=== PATIENT | male | born 1950 | race Caucasian/White ===

== ENCOUNTER 2017-04-06 18:50 | Inpatient (IN) | payer OTHER ==
[~2017-04-06] VITALS: Ht 177.8 cm; Wt 85.5 kg
[2017-04-06] MEDS ORDERED: NALOXONE HCL 2 MG/2 ML VIAL ONE (18:58)
[2017-04-06] MEDS ORDERED: NALOXONE HCL 0.4 MG/ML AMP IV PUSH ONE (19:00)
--- NOTE | 2017-04-06 19:00 | PD ---
HPI Chief Complaint: OD/ Ingestion Time Seen by Provider: 18:59 Travel History International Travel<30 days: No (unknown) Contact w/Intl Traveler<30days: No (unknown) Traveled to known affect area: No (unknown) History of Present Illness HPI OD FOUND DOWN ON FLOOR, RR 4, HR 40'S, BVM AND NARCAN .8 GIVEN AND RR INCREASED TO 16, HR INCREASED TO 120'S PFSH Past Medical History ?: Not Social History Tobacco Use: Yes Allergies-Medications (Allergen,Severity, Reaction): Coded Allergies: No Known Allergies (Unverified , 04/06/17) Reported Meds & Prescriptions Reported Meds & Active Scripts Active Active Prescriptions or Reported Medications Unobtainable Review of Systems ROS Limitations: Intoxication Except as stated in HPI: all other systems reviewed are Neg Physical Exam Narrative GENERAL: SKIN: Warm and dry. HEAD: Atraumatic. Normocephalic. EYES: Pupils equal and round. No scleral icterus. No injection or drainage. ENT: No nasal bleeding or discharge. Mucous membranes pink and moist. NECK: Trachea midline. No JVD. CARDIOVASCULAR: Regular rate and rhythm. SLIGHT TACHYCARDIA RESPIRATORY: No accessory muscle use. Clear to auscultation. Breath sounds equal bilaterally. GASTROINTESTINAL: Abdomen soft, non-tender, nondistended. MUSCULOSKELETAL: Extremities without clubbing, cyanosis, or edema. No obvious deformities. NEUROLOGICAL: WITHDRAWING TO PAIN ALL 4 EXTREMITIES, GCS 12/15, BECAME AGITATED IN CT SUITE SHORTLY AFTER TAKING TO CT...No obvious cranial nerve deficits. Motor grossly within normal limits. Five out of 5 muscle strength in the arms and legs. Normal speech. PSYCHIATRIC: Appropriate mood and affect; insight and judgment normal. Data Data Last Documented VS Vital Signs Date Time Temp Pulse Resp B/P (MAP) Pulse Ox O2 Delivery O2 Flow Rate FiO2 04/06/17 20:10 98.7 04/06/17 19:46 104 20 94 2.00 04/06/17 19:05 Non-Rebreather Orders Orders Electrocardiogram (04/06/17 18:53) Complete Blood Count With Diff (04/06/17 18:53) Comprehensive Metabolic Panel (04/06/17 18:53) Creatine Kinase (Cpk) (04/06/17 18:53) Ckmb (Isoenzyme) Profile (04/06/17 18:53) Troponin I (04/06/17 18:53) B-Type Natriuretic Peptide (04/06/17 18:53) Prothrombin Time / Inr (Pt) (04/06/17 18:53) Act Partial Throm Time (Ptt) (04/06/17 18:53) Arterial Blood Gas (Abg) (04/06/17 18:53) Urinalysis - C+S If Indicated (04/06/17 18:53) Thyroid Stimulating Hormone (04/06/17 18:53) Chest, Single Ap (04/06/17 18:53) Ct Brain W/O Iv Contrast(Rout) (04/06/17 18:53) Naloxone Inj (Narcan Inj) (04/06/17 18:58) Iv Access Insert/Monitor (04/06/17 18:53) Ecg Monitoring (04/06/17 18:53) Oxygen Administration (04/06/17 18:53) Oximetry (04/06/17 18:53) Urinary Catheter Insert/Apply (04/06/17 18:53) Drug Screen, Random Urine (04/06/17 18:53) Alcohol (Ethanol) (04/06/17 18:53) Salicylates (Aspirin) (04/06/17 18:53) Tylenol (Acetaminophen) (04/06/17 18:53) Naloxone Inj (Narcan Inj) (04/06/17 19:00) Fentanyl Inj (Fentanyl Inj) (04/06/17 19:15) Fentanyl Inj (Fentanyl Inj) (04/06/17 19:16) Lorazepam Inj (Ativan Inj) (04/06/17 19:30) Lorazepam Inj (Ativan Inj) (04/06/17 19:26) CKMB (04/06/17 20:05) CKMB% (04/06/17 20:05) Sodium Chlorid 0.9% 500 Ml Inj (Ns 500 M (04/06/17 21:00) Aspirin Chew (Aspirin Chew) (04/06/17 21:15) Nitroglycerin 2% Oint (Nitroglycerin 2% (04/06/17 21:15) Labs Laboratory Tests Test 04/06/17 18:50 04/06/17 20:05 04/06/17 20:24 Blood Gas Puncture Site LT RADIAL Blood Gas Patient Temperature 98.6 Blood Gas HCO3 12 mmol/L Blood Gas Base Excess -14.5 mmol/L Blood Gas Oxygen Saturation 96 % Arterial Blood pH 7.24 Arterial Blood Partial Pressure CO2 28 mmHg Arterial Blood Partial Pressure O2 205 mmHG Arterial Blood Oxygen Content 21.5 Vol % Arterial Blood Carboxyhemoglobin 2.5 % Arterial Blood Methemoglobin 0.5 % Blood Gas Hemoglobin 15.6 G/DL Oxygen Delivery Device Non-Rebreathing Mask Blood Gas Liter Flow 15 L/M White Blood Count 10.6 TH/MM3 Red Blood Count 4.69 MIL/MM3 Hemoglobin 15.4 GM/DL Hematocrit 45.6 % Mean Corpuscular Volume 97.3 FL Mean Corpuscular Hemoglobin 32.8 PG Mean Corpuscular Hemoglobin Concent 33.8 % Red Cell Distribution Width 13.5 % Platelet Count 273 TH/MM3 Mean Platelet Volume 7.4 FL Neutrophils (%) (Auto) 89.3 % Lymphocytes (%) (Auto) 6.5 % Monocytes (%) (Auto) 3.5 % Eosinophils (%) (Auto) 0.4 % Basophils (%) (Auto) 0.3 % Neutrophils # (Auto) 9.5 TH/MM3 Lymphocytes # (Auto) 0.7 TH/MM3 Monocytes # (Auto) 0.4 TH/MM3 Eosinophils # (Auto) 0.0 TH/MM3 Basophils # (Auto) 0.0 TH/MM3 CBC Comment DIFF FINAL Differential Comment Prothrombin Time 12.7 SEC Prothromb Time International Ratio 1.1 RATIO Activated Partial Thromboplast Time 23.4 SEC Blood Urea Nitrogen 6 MG/DL Creatinine 1.18 MG/DL Random Glucose 189 MG/DL Total Protein 8.4 GM/DL Albumin 3.5 GM/DL Calcium Level 8.9 MG/DL Alkaline Phosphatase 57 U/L Aspartate Amino Transf (AST/SGOT) 97 U/L Alanine Aminotransferase (ALT/SGPT) 105 U/L Total Bilirubin 1.2 MG/DL Sodium Level 129 MEQ/L Potassium Level 3.8 MEQ/L Chloride Level 93 MEQ/L Carbon Dioxide Level 20.2 MEQ/L Anion Gap 16 MEQ/L Estimat Glomerular Filtration Rate 53 ML/MIN Total Creatine Kinase 403 U/L Creatine Kinase MB 2.1 NG/ML Creatine Kinase MB % 0.5 % Troponin I 0.07 NG/ML B-Type Natriuretic Peptide 94 PG/ML Thyroid Stimulating Hormone 3rd Gen 1.420 uIU/ML Salicylates Level LESS THAN 1.7 MG/DL Acetaminophen Level LESS THAN 2.0 MCG/ML Ethyl Alcohol Level LESS THAN 3 MG/DL Urine Color YELLOW Urine Turbidity CLEAR Urine pH 5.5 Urine Specific [place] 1.011 Urine Protein 30 mg/dL Urine Glucose (UA) TRACE mg/dL Urine Ketones 10 mg/dL Urine Occult Blood SMALL Urine Nitrite NEG Urine Bilirubin NEG Urine Urobilinogen LESS THAN 2.0 MG/DL Urine Leukocyte Esterase NEG Urine RBC 1 /hpf Urine WBC 2 /hpf Urine Amorphous Sediment RARE Urine Bacteria OCC /hpf Urine Mucus FEW /lpf Urine Sperm RARE Microscopic Urinalysis Comment CULT NOT INDICATED Urine Opiates Screen NEG Urine Barbiturates Screen NEG Urine Amphetamines Screen NEG Urine Benzodiazepines Screen NEG Urine Cocaine Screen POS Urine Cannabinoids Screen NEG MDM Medical Decision Making Medical Screen Exam Complete: Yes Emergency Medical Condition: Yes Medical Record Reviewed: Yes Differential Diagnosis ICH V OPIATE OVERDOSE V ELECTROLYTE ABNL Narrative Course PATINET NOTED TO INITIALLY BE WITHDRAWING TO PAIN ONLY AND WITHDRAWING THROUGH ALL 4 EXTREMITIES, PATIENT TAKEN TO CT HEAD DUE TO SOME OCCASIONAL EXTENSION OF BILATERAL UPPER EXTREMITIES POSSIBLE POSTURING? WHILE IN CT SCAN PATIENT BECAME VERY COMBATIVE AFTER RECEIVING ADDITIONAL NARCAN, SO PATIENT WAS GIVEN SOME SEDATION TO ALLOW FOR CT HEAD....WHICH DID NOT SHOW E/O ICH. PATIENT SIGNED OUT TO DR AQUINO PENDING FORMAL CAT SCAN READ AND LABS, DISPO Diagnosis Primary Impression: Altered mental status Qualified Codes: R40.1 - Stupor Additional Impression: SUSPECTED OPIATE OVERDOSE Scripts Unable to Obtain Active Prescriptions or Reported Meds Marcial Page MD Apr 06, 2017 19:00
[2017-04-06 19:02] LABS: BLOOD GAS BASE EXCESS -14.5 mmol/L (-2-2); BLOOD GAS CARBOXYHEMOGLOBIN 2.5 % (0-4); BLOOD GAS HCO3 12 mmol/L (22-26); BLOOD GAS METHEMOGLOBIN 0.5 % (0-2); BLOOD GAS O2 HGB SATURATION 96 % (90-100); BLOOD GAS OXYGEN CONTENT 21.5 Vol % (12.0-20.0); BLOOD GAS PCO2 28 mmHg (38-42); BLOOD GAS PO2 205 mmHG (61-120); BLOOD GAS TOTAL HGB 15.6 G/DL (12.0-16.0); TEMP CORR TO 98.6
[2017-04-06 19:03] VITALS: BP 216/116; PULSE 109; RESP 20; O2SAT 100
[2017-04-06 19:03] LABS: DRAW SITE LT RADIAL; LITER FLOW 15 L/M; NUMBER OF ARTERIAL PUNCTURES 1; STAT YES; ULNAR PULSE PRESENT
[2017-04-06 19:05] VITALS: RESP 20; O2SAT 99
--- NOTE | 2017-04-06 19:13 | PD ---
Physical Exam Narrative General: The patient is a well-developed well-nourished male, drowsy on my arrival to the room, however the patient did become agitated after Narcan administration and CAT scan of was provided both fentanyl which was not successful for sedating the patient, therefore the patient was also given Ativan for sedation for CT. Head and Neck exam: Head is normocephalic atraumatic. Eyes: EOMI, pupils are equal round and reactive to light. Nose: Midline septum with pink mucous membranes Mouth: Dentition unremarkable. Moist mucus membranes. Posterior oropharynx is not erythematous. No tonsillar hypertrophy. Uvula midline. Airway patent. No tongue contusion or laceration noted. Neck: No palpable lymphadenopathy. No nuchal rigidity. No thyromegaly. Cardiovascular: Sinus tachycardia in the low 100 without murmurs, gallops, or rubs. No pulse deficit to the extremities and simultaneous auscultation and palpation of his radial artery. Lungs: Clear to auscultation bilaterally. No wheezes, rhonchi, or rales. Abdomen: Soft, without tenderness to palpation in all 4 quadrants of the abdomen. No guarding, rebound, or rigidity. Normal bowel sounds are audible. No tenderness on palpation of McBurney's point. Extremities: No clubbing, cyanosis, or edema. 2+ pulses in all 4 extremities. No calf tenderness on palpation. Neurologic Exam: The patient is drowsy on examination although he was sedated for CT. The patient is moving all extremities equally, no evidence of facial asymmetry. The patient is able to state his name. He denies taking any drugs earlier today. Skin Exam: No rash noted. Intact skin that is warm and dry. Data Data Last Documented VS Vital Signs Date Time Temp Pulse Resp B/P (MAP) Pulse Ox O2 Delivery O2 Flow Rate FiO2 04/06/17 20:10 98.7 04/06/17 19:46 104 20 94 2.00 04/06/17 19:05 Non-Rebreather Orders Orders Electrocardiogram (04/06/17 18:53) Complete Blood Count With Diff (04/06/17 18:53) Comprehensive Metabolic Panel (04/06/17 18:53) Creatine Kinase (Cpk) (04/06/17 18:53) Ckmb (Isoenzyme) Profile (04/06/17 18:53) Troponin I (04/06/17 18:53) B-Type Natriuretic Peptide (04/06/17 18:53) Prothrombin Time / Inr (Pt) (04/06/17 18:53) Act Partial Throm Time (Ptt) (04/06/17 18:53) Arterial Blood Gas (Abg) (04/06/17 18:53) Urinalysis - C+S If Indicated (04/06/17 18:53) Thyroid Stimulating Hormone (04/06/17 18:53) Chest, Single Ap (04/06/17 18:53) Ct Brain W/O Iv Contrast(Rout) (04/06/17 18:53) Naloxone Inj (Narcan Inj) (04/06/17 18:58) Iv Access Insert/Monitor (04/06/17 18:53) Ecg Monitoring (04/06/17 18:53) Oxygen Administration (04/06/17 18:53) Oximetry (04/06/17 18:53) Urinary Catheter Insert/Apply (04/06/17 18:53) Drug Screen, Random Urine (04/06/17 18:53) Alcohol (Ethanol) (04/06/17 18:53) Salicylates (Aspirin) (04/06/17 18:53) Tylenol (Acetaminophen) (04/06/17 18:53) Naloxone Inj (Narcan Inj) (04/06/17 19:00) Fentanyl Inj (Fentanyl Inj) (04/06/17 19:15) Fentanyl Inj (Fentanyl Inj) (04/06/17 19:16) Lorazepam Inj (Ativan Inj) (04/06/17 19:30) Lorazepam Inj (Ativan Inj) (04/06/17 19:26) CKMB (04/06/17 20:05) CKMB% (04/06/17 20:05) Sodium Chlorid 0.9% 500 Ml Inj (Ns 500 M (04/06/17 21:00) Aspirin Chew (Aspirin Chew) (04/06/17 21:15) Nitroglycerin 2% Oint (Nitroglycerin 2% (04/06/17 21:15) Osmolality,Serum (04/06/17 21:24) Osmolality, Urine (04/06/17 21:24) Place In Observation (04/06/17 ) Vital Signs (Adult) Q4H (04/06/17 21:27) Activity Bed Rest (04/06/17 21:27) Bedside Glucose ROSEANNE.AC&HS (04/06/17 21:27) Home Health Aid / Telemetry .CONTINUOUS (04/06/17 21:) Intake + Output ROSEANNE.QSHIFT (04/06/17 21:27) Notify Dr: Other (04/06/17 21:27) Diet Npo (04/07/17 Breakfast) Sodium Chlor 0.9% 1000 Ml Inj (Ns 1000 M (04/06/17 21:27) Sodium Chloride 0.9% Flush (Ns Flush) (04/06/17 21:30) Sodium Chloride 0.9% Flush (Ns Flush) (04/07/17 09:00) Basic Metabolic Panel (Bmp) (04/07/17 06:00) Complete Blood Count With Diff (04/07/17 06:00) Creatine Kinase (Cpk) (04/06/17 21:27) Creatine Kinase (Cpk) (04/07/17 03:27) Troponin I (04/06/17 21:27) Troponin I (04/07/17 03:27) Electrocardiogram (04/06/17 21:27) Electrocardiogram (04/07/17 03:27) Resp Oxygen Lorne C Titrat 1-4 L (04/06/17 ) Heparin Inj (Heparin Inj) (04/06/17 22:00) Scd Bilateral/Knee High ROSEANNE.BID (04/06/17 21:27) Naloxone Inj (Narcan Inj) (04/06/17 21:30) Arterial Blood Gas (Abg) (04/06/17 ) Labs Laboratory Tests Test 04/06/17 18:50 04/06/17 20:05 04/06/17 20:24 Blood Gas Puncture Site LT RADIAL Blood Gas Patient Temperature 98.6 Blood Gas HCO3 12 mmol/L Blood Gas Base Excess -14.5 mmol/L Blood Gas Oxygen Saturation 96 % Arterial Blood pH 7.24 Arterial Blood Partial Pressure CO2 28 mmHg Arterial Blood Partial Pressure O2 205 mmHG Arterial Blood Oxygen Content 21.5 Vol % Arterial Blood Carboxyhemoglobin 2.5 % Arterial Blood Methemoglobin 0.5 % Blood Gas Hemoglobin 15.6 G/DL Oxygen Delivery Device Non-Rebreathing Mask Blood Gas Liter Flow 15 L/M White Blood Count 10.6 TH/MM3 Red Blood Count 4.69 MIL/MM3 Hemoglobin 15.4 GM/DL Hematocrit 45.6 % Mean Corpuscular Volume 97.3 FL Mean Corpuscular Hemoglobin 32.8 PG Mean Corpuscular Hemoglobin Concent 33.8 % Red Cell Distribution Width 13.5 % Platelet Count 273 TH/MM3 Mean Platelet Volume 7.4 FL Neutrophils (%) (Auto) 89.3 % Lymphocytes (%) (Auto) 6.5 % Monocytes (%) (Auto) 3.5 % Eosinophils (%) (Auto) 0.4 % Basophils (%) (Auto) 0.3 % Neutrophils # (Auto) 9.5 TH/MM3 Lymphocytes # (Auto) 0.7 TH/MM3 Monocytes # (Auto) 0.4 TH/MM3 Eosinophils # (Auto) 0.0 TH/MM3 Basophils # (Auto) 0.0 TH/MM3 CBC Comment DIFF FINAL Differential Comment Prothrombin Time 12.7 SEC Prothromb Time International Ratio 1.1 RATIO Activated Partial Thromboplast Time 23.4 SEC Blood Urea Nitrogen 6 MG/DL Creatinine 1.18 MG/DL Random Glucose 189 MG/DL Total Protein 8.4 GM/DL Albumin 3.5 GM/DL Calcium Level 8.9 MG/DL Alkaline Phosphatase 57 U/L Aspartate Amino Transf (AST/SGOT) 97 U/L Alanine Aminotransferase (ALT/SGPT) 105 U/L Total Bilirubin 1.2 MG/DL Sodium Level 129 MEQ/L Potassium Level 3.8 MEQ/L Chloride Level 93 MEQ/L Carbon Dioxide Level 20.2 MEQ/L Anion Gap 16 MEQ/L Estimat Glomerular Filtration Rate 53 ML/MIN Serum Osmolality 282 MOSM/KG Total Creatine Kinase 403 U/L Creatine Kinase MB 2.1 NG/ML Creatine Kinase MB % 0.5 % Troponin I 0.07 NG/ML B-Type Natriuretic Peptide 94 PG/ML Thyroid Stimulating Hormone 3rd Gen 1.420 uIU/ML Salicylates Level LESS THAN 1.7 MG/DL Acetaminophen Level LESS THAN 2.0 MCG/ML Ethyl Alcohol Level LESS THAN 3 MG/DL Urine Color YELLOW Urine Turbidity CLEAR Urine pH 5.5 Urine Specific [place] 1.011 Urine Protein 30 mg/dL Urine Glucose (UA) TRACE mg/dL Urine Ketones 10 mg/dL Urine Occult Blood SMALL Urine Nitrite NEG Urine Bilirubin NEG Urine Urobilinogen LESS THAN 2.0 MG/DL Urine Leukocyte Esterase NEG Urine RBC 1 /hpf Urine WBC 2 /hpf Urine Amorphous Sediment RARE Urine Bacteria OCC /hpf Urine Mucus FEW /lpf Urine Sperm RARE Microscopic Urinalysis Comment CULT NOT INDICATED Urine Osmolality 383 MOSM/KG Urine Opiates Screen NEG Urine Barbiturates Screen NEG Urine Amphetamines Screen NEG Urine Benzodiazepines Screen NEG Urine Cocaine Screen POS Urine Cannabinoids Screen NEG MDM Medical Record Reviewed: Yes Supervised Visit with JAMIL: No Interpretation(s) Last Impressions Head CT 04/06/171852 Signed Impressions: Service Date/Time: Thursday, April 06, 2017 18:57 - CONCLUSION: 1. Suboptimal examination. 2. No acute hemorrhage or mass effect. 3. Moderate atrophic change. The lateral ventricles appear dilated out of proportion to the degree of atrophy which could indicate normal pressure hydrocephalus. Marlon Salguero MD Chest X-Ray 04/06/[id number] Signed Impressions: Service Date/Time: Thursday, April 06, 2017 19:41 - CONCLUSION: No acute disease. Marlon Salguero MD Narrative Course During the course of the patients emergency department visit, the patient had IV access obtained and blood work sent for analysis. The patient was placed on a metal furniture polisher with oximetry and blood pressure monitoring. The patient's case was checked out to me by Dr. Page. Please see his complete history and physical. The patient's case is checked out to me at the conclusion of his shift. The patient presented with a decreased level of consciousness, decreased respiratory rate and heart rate. The patient responded to Narcan administration. EKG shows a sinus tachycardia rate of 105, QRS duration is 101 ms, QTc is 428 ms, as are noted in lead 3, no acute ST segment elevation or depression. The patient was initially provided normal saline a 500 mL bolus 1. The patient was given Ativan for sedation for CT scan. The patients laboratory studies were reviewed and remarkable for a white count of 10.6, hemoglobin 15.4, platelets 273 with 89.3 neutrophils, lymphocytes 6.5. CMP is remarkable for sodium of 129, chloride 93, CO2 20.2, anion gap 16, BUN 6, glucose 189, total bilirubin 1.2, AST 97, ALT 105, CPK 403, MB percent 0.5, troponin I 0.07 she may be related to the patient's tachycardia, cardiac enzymes will be repeated. The patient on reexamination denies having any chest pain. BNP is 94, total protein 98.4, TSH 1.42, PT 12.7, PTT 23.4, urinalysis shows 30 protein 10 ketones small occult blood, this is a catheterized specimen. Urine drug screen is positive for cocaine. Alcohol level less than 3 , acetaminophen less than 2, salicylate less than 1.7 Radiology studies were reviewed and remarkable for a chest x-ray that shows no acute cardiopulmonary abnormality, CT scan of the brain shows a suboptimal exam due to motion, no acute hemorrhage or mass effect. Moderate atrophic change, lateral ventricles appear dilated out of proportion to the degree of atrophy which could indicate normal pressure hydrocephalus as read by the reading radiologist. As the patient was being observed, the patient became more awake and was able to provide more history. The patient denies having any past medical history. He denies having any past surgical history. He denies having any known allergies to medicines. He denies taking any prescribed medicines. Regarding his social history he does report smoking a pack of cigarettes per day, drinking approximately 4 beers daily, however he denies any drug use. He reports that he has had alcohol withdrawal symptoms in the past. He cannot call when he last had any alcohol. The patients results were discussed with the patient, including the plan of care. I explained that further testing and/ or monitoring is indicated based on the patients history, examination, and/ or laboratory findings. Therefore, I recommended admission for additional evaluation. The patient expressed understanding and was agreeable with this plan. The patient was admitted to the hospital in guarded condition and [facility] Physician Communication Physician Communication The patient's case was discussed with Dr. López who did agree to admit the patient for further evaluation and treatment at this time. Diagnosis Primary Impression: Altered mental status Qualified Codes: R40.1 - Stupor Additional Impressions: Elevated troponin I level Metabolic acidosis Admitting Information Admitting Physician Requests: Admit Scripts Unable to Obtain Active Prescriptions or Reported Meds Oliva Jimenez MD Apr 06, 2017 19:13
[2017-04-06] MEDS ORDERED: LORazepam 2 MG/ML VIAL IM ONE (19:15)
[2017-04-06] MEDS ORDERED: HALOPERIDOL LACTATE 5 MG/ML AMP IM ONE (19:15)
[2017-04-06] MEDS ORDERED: LORazepam 2 MG/ML VIAL ONE (19:26)
[2017-04-06] MEDS ORDERED: LORazepam 2 MG/ML VIAL IV PUSH ONE (19:30)
[2017-04-06 19:46] VITALS: BP 127/76; PULSE 104; RESP 20; O2SAT 94
--- NOTE | 2017-04-06 19:57 | RADRPT ---
EXAM DATE/TIME: 04/06/2017 18:57 [facility] COMPARISON: No previous studies available for comparison. INDICATIONS : Altered mental status. Possible overdose. RADIATION DOSE: 62.05 CTDIvol (mGy) ; Tabletop CT Head MEDICAL HISTORY : Non-responsive. SURGICAL HISTORY : Non-responsive. ENCOUNTER: Initial ACUITY: 1 day PAIN SCALE: Non-responsive LOCATION: cranial TECHNIQUE: Multiple contiguous axial images were obtained of the head. Using automated exposure control and adj ustment of the mA and/or kV according to patient size, radiation dose was kept as low as reasonably a chievable to obtain optimal diagnostic quality images. DICOM format image data is available electro nically for review and comparison. FINDINGS: The patient is tilted in the scanning gantry. There is mild motion and streak artifact and sensitivit y. CEREBRUM: There is diffuse moderate atrophic change with sulcal prominence. The lateral ventricles are moderate ly dilated. The third and fourth ventricles appear unremarkable. No evidence of midline shift, mass l esion, hemorrhage or acute infarction. No extra-axial fluid collections are seen. POSTERIOR FOSSA: The cerebellum and brainstem are intact. The 4th ventricle is midline. The cerebellopontine angle i s unremarkable. EXTRACRANIAL: The visualized portion of the orbits is intact. SKULL: The calvaria is intact. No evidence of skull fracture. CONCLUSION: 1. Suboptimal examination. 2. No acute hemorrhage or mass effect. 3. Moderate atrophic change. The lateral ventricles appear dilated out of proportion to the degree of atrophy which could indicate normal pressure hydrocephalus. Marlon Salguero MD on April 06, 2017 at 19:52 Board Certified Radiologist. This report was verified electronically.
[2017-04-06 20:10] VITALS: TEMP 98.7
--- NOTE | 2017-04-06 20:15 | RADRPT ---
EXAM DATE/TIME: 04/06/2017 19:41 [facility] COMPARISON: CT BRAIN W/O CONTRAST, April 06, 2017, 18:57. INDICATIONS : Overdose. Unresponsive. MEDICAL HISTORY : None. SURGICAL HISTORY : None. ENCOUNTER: Initial ACUITY: 1 day PAIN SCORE: Non-responsive. LOCATION: Bilateral chest FINDINGS: A single view of the chest demonstrates the lungs to be symmetrically aerated without evidence of mas s, infiltrate or effusion. The cardiomediastinal contours are unremarkable. Osseous structures are intact. Atherosclerotic changes noted in the aorta. CONCLUSION: No acute disease. Marlon Salguero MD on April 06, 2017 at 20:13 Board Certified Radiologist. This report was verified electronically.
[2017-04-06 20:24] LABS: AUTOMATED NEUTROPHIL # 9.5 TH/MM3 (1.8-7.7); BASOPHIL % 0.3 % (0.0-2.0); EOSINOPHIL % 0.4 % (0.0-4.0); HEMATOCRIT 45.6 % (39.0-51.0); HEMO FLAGS DIFF FINAL; LYMPH % 6.5 % (9.0-44.0); LYMPHOCYTE # 0.7 TH/MM3 (1.0-4.8); MEAN CELL VOLUME 97.3 FL (80.0-100.0); MEAN CORPUSCULAR HEMOGLOBIN 32.8 PG (27.0-34.0); MEAN CORPUSCULAR HGB CONC 33.8 % (32.0-36.0); MONO % 3.5 % (0.0-8.0); NEUT % 89.3 % (16.0-70.0); PLATELET COUNT 273 TH/MM3 (150-450); RED BLOOD COUNT 4.69 MIL/MM3 (4.50-5.90); RED CELL DISTRIBUTION WIDTH 13.5 % (11.6-17.2); WHITE BLOOD COUNT 10.6 TH/MM3 (4.0-11.0)
[2017-04-06 20:34] LABS: APTT (PATIENT) 23.4 SEC (24.3-30.1); INTERNATIONAL NORMALIZED RATIO 1.1 RATIO; PROTHROMBIN TIME - PATIENT 12.7 SEC (9.8-11.6)
[2017-04-06 20:40] LABS: ANION GAP 16 MEQ/L (5-15); AST (GOT) 97 U/L (15-37); BICARBONATE 20.2 MEQ/L (21.0-32.0); BLOOD UREA NITROGEN 6 MG/DL (7-18); CHLORIDE 93 MEQ/L (98-107); GLOMERULAR FILTRATION RATE 53 ML/MIN (>89); POTASSIUM 3.8 MEQ/L (3.5-5.1); SODIUM (NA) 129 MEQ/L (136-145)
[2017-04-06 20:41] LABS: ALT (GPT) 105 U/L (12-78)
[2017-04-06 20:49] LABS: BACTERIA, URINE OCC /hpf; BLOOD, URINE SMALL (NEG); GLUCOSE,URINE TRACE mg/dL (NEG); KETONE, URINE 10 mg/dL (NEG); MUCUS URINE FEW /lpf (OCC); NITRITE,URINE NEG (NEG); PH, URINE 5.5 (5.0-8.5); URINE COLOR YELLOW (YELLW/STRAW)
[2017-04-06 20:50] LABS: COMMENT (UR) CULT NOT INDICATED; CULTURE IF INDICATED CULT NOT INDICATED
[2017-04-06 20:51] LABS: ALKALINE PHOSPHATASE 57 U/L (45-117); CREATINE KINASE 403 U/L (39-308); TOTAL BILIRUBIN ADULT 1.2 MG/DL (0.2-1.0)
[2017-04-06 20:52] LABS: ACETAMINOPHEN LESS THAN 2.0 MCG/ML (10.0-30.0); ALCOHOL LESS THAN 3 MG/DL (0-5)
[2017-04-06] MEDS ORDERED: SODIUM CHLORID 0.9% 500 ML INJ 500 ML IV ONE (21:00)
[2017-04-06 21:04] LABS: CKMB 2.1 NG/ML (0.5-3.6)
[2017-04-06] MEDS ORDERED: NITROGLYCERIN 2% OINT 1 GM PACKET TOPICAL ONE (21:15)
[2017-04-06] MEDS ORDERED: ASPIRIN 81 MG CHEW TAB CHEW ONE (21:15)
[2017-04-06] MEDS ORDERED: NALOXONE HCL 0.4 MG/ML AMP IV PRN (21:30)
[2017-04-06] MEDS ORDERED: SODIUM CHLORIDE 0.9% FLUSH 10 ML FLUSH IV FLUSH PRN (21:30)
[2017-04-06] MEDS ORDERED: HEPARIN SODIUM - SQ 10,000 UNITS/ML VIAL SQ SCH (22:00)
[2017-04-06 22:05] LABS: BLOOD GAS BASE EXCESS 2.2 mmol/L (-2-2); BLOOD GAS CARBOXYHEMOGLOBIN 2.1 % (0-4); BLOOD GAS HCO3 26 mmol/L (22-26); BLOOD GAS METHEMOGLOBIN 0.7 % (0-2); BLOOD GAS O2 HGB SATURATION 93 % (90-100); BLOOD GAS OXYGEN CONTENT 19.1 Vol % (12.0-20.0); BLOOD GAS PCO2 38 mmHg (38-42); BLOOD GAS PO2 79 mmHG (61-120); BLOOD GAS TOTAL HGB 14.5 G/DL (12.0-16.0); CRITICAL VALUE NO; DRAW SITE LT RADIAL; LITER FLOW 1 L/M; NUMBER OF ARTERIAL PUNCTURES 1; OXYGEN DEVICE NASAL CANNULA; STAT YES; TEMP CORR TO 98.6; ULNAR PULSE PRESENT
[2017-04-06 22:07] VITALS: O2SAT 97
[2017-04-06] MEDS: SODIUM CHLOR 0.9% 1000 ML INJ 1,000 ML IV SCH (22:25)
--- NOTE | 2017-04-06 22:55 | RADRPT ---
EXAM DATE/TIME: 04/06/2017 22:17 [facility] COMPARISON: No previous studies available for comparison. INDICATIONS : Increased labs. MEDICAL HISTORY : Chest pain. Overdose. SURGICAL HISTORY : None. ENCOUNTER: Initial ACUITY: 1 day PAIN SCORE: 2/10 LOCATION: Bilateral abdomen. MEASUREMENTS: LIVER: 18.1 cm length COMMON DUCT: 4 mm RIGHT KIDNEY: 9.7 x 5.7 x 5.4 cm SPLEEN: 10.4 cm length FINDINGS: LIVER: Liver is enlarged measuring up to 18.1 cm. There is no discrete focal mass. 2 small echogenic foci wi th posterior shadowing consistent with calcifications. These measure approximately 5 mm in size. Ther e is no ductal dilatation. COMMON DUCT: No intraluminal mass or stone visualized. GALLBLADDER: Suboptimal visualization. Contains no stones, demonstrates no wall thickening or pericholecystic flui d. PANCREAS: The visualized portions are within normal limits. RIGHT KIDNEY: No hydronephrosis, stone or mass. SPLEEN: No focal lesion. CONCLUSION: 1. Liver is prominent with small calcifications. 2. The gallbladder is grossly unremarkable. Visualization was suboptimal. Marlon Salguero MD on April 06, 2017 at 22:50 Board Certified Radiologist. This report was verified electronically.
--- NOTE | 2017-04-06 22:56 | HHI.HP ---
[facility] Unknown Admission Diagnosis AMS, elevated troponin, metabolic acidosis Diagnoses: Chief Complaint: Unresponsive Travel History International Travel<30 Days: No Contact w/Intl Traveler <30 Da: No Traveled to Known Affected Are: No (unknown) History of Present Illness Elderly patient who was found on the floor with a heart rate of 40s and low respiratory rate brought to the ED he was given Narcan which brought his heart rate back to normal then tachycardic, patient is lethargic , pupils were constricted at presentation as mentioned by ED physician, I saw the patient he was laying in bed he was arousable but still lethargic not answering any question, his ABG initially showed acute metabolic acidosis with respiratory alkalosis pH 7.24, PCO2 28, PaO2: 205 and calculated osmolality was 456, EKG showed Q waves in II, III, and F aVF, also increased ALT AST bilirubin CK and troponin. Patient was given iv fluid, I ordered stat repeat ABG. Drug toxic screen has been ordered and was only positive for cocaine. Patient was not able to give any history due to his condition. CT scan was suboptimal but no hemorrhage or mass effect, moderate atrophic changes, lateral ventricles of her dilated possible normal pressure hydrocephalus Review of Systems All systems reviewed and was positive for what is mentioned in history of present illness otherwise negative Past Family Social History Past Medical History Unobtainable Past Surgical History Unobtainable Allergies: Coded Allergies: No Known Allergies (Unverified , 04/06/17) Family History unobtainable Social History unobtainable but urine drug toxic screen positive for cocaine Physical Exam Vital Signs Vital Signs Date Time Temp Pulse Resp B/P (MAP) Pulse Ox O2 Delivery O2 Flow Rate FiO2 04/06/17 22:07 97 Nasal Cannula 1.00 04/06/17 20:10 98.7 04/06/17 19:46 104 20 127/76 (93) 94 2.00 04/06/17 19:05 100 Non-Rebreather 15.00 04/06/17 19:05 20 99 Non-Rebreather 04/06/17 19:03 109 20 216/116 (149) 100 Non-Rebreather 15.00 Physical Exam GENERAL: This is a frail disheveled elderly who is lethargic but arousable SKIN: No rashes, warm and dry HEAD: Atraumatic. Normocephalic. EYES: Pupils slightly reactive to light ENT: Nose without bleeding, or drainage, Airway patent. NECK: Trachea midline. Supple CARDIOVASCULAR: Regular rate and rhythm without murmurs, gallops, or rubs. RESPIRATORY: Fair air entry bilaterally. No wheezes, rales, or rhonchi. GASTROINTESTINAL: Abdomen soft, non-tender, nondistended. Positive bowel sounds MUSCULOSKELETAL: Extremities without clubbing, cyanosis, or edema. Pedal pulses appreciated NEUROLOGICAL: Lethargic, some nonpurposeful upper extremities movement Laboratory Laboratory Tests Test 04/06/17 18:50 04/06/17 20:05 04/06/17 20:24 04/06/17 21:50 Blood Gas Puncture Site LT RADIAL LT RADIAL Blood Gas Patient Temperature 98.6 98.6 Blood Gas HCO3 12 26 Blood Gas Base Excess -14.5 2.2 Blood Gas Oxygen Saturation 96 93 Arterial Blood pH 7.24 7.45 Arterial Blood Partial Pressure CO2 28 38 Arterial Blood Partial Pressure O2 205 79 Arterial Blood Oxygen Content 21.5 19.1 Arterial Blood Carboxyhemoglobin 2.5 2.1 Arterial Blood Methemoglobin 0.5 0.7 Blood Gas Hemoglobin 15.6 14.5 Oxygen Delivery Device Non-Rebreathing Mask NASAL CANNULA Blood Gas Liter Flow 15 1 White Blood Count 10.6 Red Blood Count 4.69 Hemoglobin 15.4 Hematocrit 45.6 Mean Corpuscular Volume 97.3 Mean Corpuscular Hemoglobin 32.8 Mean Corpuscular Hemoglobin Concent 33.8 Red Cell Distribution Width 13.5 Platelet Count 273 Mean Platelet Volume 7.4 Neutrophils (%) (Auto) 89.3 Lymphocytes (%) (Auto) 6.5 Monocytes (%) (Auto) 3.5 Eosinophils (%) (Auto) 0.4 Basophils (%) (Auto) 0.3 Neutrophils # (Auto) 9.5 Lymphocytes # (Auto) 0.7 Monocytes # (Auto) 0.4 Eosinophils # (Auto) 0.0 Basophils # (Auto) 0.0 CBC Comment DIFF FINAL Differential Comment Prothrombin Time 12.7 Prothromb Time International Ratio 1.1 Activated Partial Thromboplast Time 23.4 Blood Urea Nitrogen 6 Creatinine 1.18 Random Glucose 189 Total Protein 8.4 Albumin 3.5 Calcium Level 8.9 Alkaline Phosphatase 57 Aspartate Amino Transf (AST/SGOT) 97 Alanine Aminotransferase (ALT/SGPT) 105 Total Bilirubin 1.2 Sodium Level 129 Potassium Level 3.8 Chloride Level 93 Carbon Dioxide Level 20.2 Anion Gap 16 Estimat Glomerular Filtration Rate 53 Serum Osmolality 282 Total Creatine Kinase 403 Creatine Kinase MB 2.1 Creatine Kinase MB % 0.5 Troponin I 0.07 B-Type Natriuretic Peptide 94 Thyroid Stimulating Hormone 3rd Gen 1.420 Salicylates Level LESS THAN 1.7 Acetaminophen Level LESS THAN 2.0 Ethyl Alcohol Level LESS THAN 3 Urine Color YELLOW Urine Turbidity CLEAR Urine pH 5.5 Urine Specific [place] 1.011 Urine Protein 30 Urine Glucose (UA) TRACE Urine Ketones 10 Urine Occult Blood SMALL Urine Nitrite NEG Urine Bilirubin NEG Urine Urobilinogen LESS THAN 2.0 Urine Leukocyte Esterase NEG Urine RBC 1 Urine WBC 2 Urine Amorphous Sediment RARE Urine Bacteria OCC Urine Mucus FEW Urine Sperm RARE Microscopic Urinalysis Comment CULT NOT INDICATED Urine Osmolality 383 Urine Opiates Screen NEG Urine Barbiturates Screen NEG Urine Amphetamines Screen NEG Urine Benzodiazepines Screen NEG Urine Cocaine Screen POS Urine Cannabinoids Screen NEG Test 04/06/17 21:54 Lactic Acid Level 2.4 Result Diagram: 04/06/17200404/06/172004 Imaging Last Impressions Head CT 04/06/171852 Signed Impressions: Service Date/Time: Thursday, April 06, 2017 18:57 - CONCLUSION: 1. Suboptimal examination. 2. No acute hemorrhage or mass effect. 3. Moderate atrophic change. The lateral ventricles appear dilated out of proportion to the degree of atrophy which could indicate normal pressure hydrocephalus. Marlon Salguero MD Chest X-Ray 04/06/171852 Signed Impressions: Service Date/Time: Thursday, April 06, 2017 19:41 - CONCLUSION: No acute disease. Marlon Salguero MD Caprini VTE Risk Assessment Caprini VTE Risk Assessment: Mod/High Risk (score >= 2) Caprini Risk Assessment Model Point Value = 1 Point Value = 2 Point Value = 3 Point Value = 5 Age 41-60 Minor surgery BMI > 25 kg/m2 Swollen legs Varicose veins or History of unexplained or recurrent spontaneous Oral contraceptives or hormone replacement Sepsis (< 1 month) Serious lung disease, including pneumonia (< 1 month) Abnormal pulmonary function Acute myocardial infarction Congestive heart failure (< 1 month) History of inflammatory bowel disease Medical patient at bed rest Age 61-74 Arthroscopic surgery Major open surgery (> 45 min) Laparoscopic surgery (> 45 min) Malignancy Confined to bed (> 72 hours) Immobilizing plaster cast Central venous access Age >= 75 History of VTE Family history of VTE Factor V Leiden Prothrombin [id number] Lupus anticoagulant Anticardiolipin antibodies Elevated serum homocysteine Heparin-induced thrombocytopenia Other congenital or acquired thrombophilia Stroke (< 1 month) Elective arthroplasty Hip, pelvis, or leg fracture Acute spinal cord injury (< 1 month) Prophylaxis Regimen Total Risk Factor Score Risk Level Prophylaxis Regimen 0-1 Low Early ambulation 2 Moderate Order ONE of the following: *Sequential Compression Device (SCD) *Heparin 5000 units SQ BID 3-4 Higher Order ONE of the following medications: *Heparin 5000 units SQ TID *Enoxaparin/Lovenox 40 mg SQ daily (WT < 150 kg, CrCl > 30 mL/min) *Enoxaparin/Lovenox 30 mg SQ daily (WT < 150 kg, CrCl > 10-29 mL/min) *Enoxaparin/Lovenox 30 mg SQ BID (WT < 150 kg, CrCl > 30 mL/min) AND/OR *Sequential Compression Device (SCD) 5 or more Highest Order ONE of the following medications: *Heparin 5000 units SQ TID (Preferred with Epidurals) *Enoxaparin/Lovenox 40 mg SQ daily (WT < 150 kg, CrCl > 30 mL/min) *Enoxaparin/Lovenox 30 mg SQ daily (WT < 150 kg, CrCl > 10-29 mL/min) *Enoxaparin/Lovenox 30 mg SQ BID (WT < 150 kg, CrCl > 30 mL/min) AND *Sequential Compression Device (SCD) Assessment and Plan Assessment and Plan Elderly male was found unresponsive bradycardic and bradypneic Change in mental status metabolic encephalopathy Acute respiratory failure/depression with respiration around 4 Acute benign gap metabolic acidosis with respiratory alkalosis Positive anion gap 16 Positive osmolality gap 170 Hyperbilirubinemia 1.2, hypertransaminasemia AST/ALT> 105/97 Increased CK>> rhabdo, UA positive for ketone and RBC Elevated troponin 0.07 DVT prophylaxis Plan: Admit for close monitoring under telemetry O2 to keep O2 sat above 92% Iv fluid, check BMP every 6 hours monitor on 9 gap Repeat ABG stat, reviewed by me significantly improved, continue iv fluid 0.9 normal saline Continue cycling cardiac enzyme, EKG reviewed personally by me showed Q waves in 2-3 and aVF sinus tachycardia [place] interval 162 Monitor CK Check hepatitis panel and liver ultrasound, further workup accordingly, repeat LFT in a.m. If troponin continue to increase, consult cardiology, monitor EKG, patient may need heart catheter Monitor vitals and neuro check If benign gap and acid base disturbance did not improve with the next BMP will transfer to ICU and consult owner spa director CT of the head personally reviewed by me was unremarkable for lateral ventricles dilation SCD and heparin for DVT prophylaxis Will continue close monitoring for the patient Critical care time 50 minutes Addendum 3:30 AM Next BMP came back with anion gap corrected 7, however troponin increased from 0.07-0.5, will do EKG, start Lovenox, consult cardiology Discussed Condition With ED physician Physician Certification 2 Midnight Certification Type: Admission for Inpatient Services Order for Inpatient Services The services are ordered in accordance with Medicare regulations or non- Medicare payer requirements, as applicable. In the case of services not specified as inpatient-only, they are appropriately provided as inpatient services in accordance with the 2-midnight benchmark. Estimated LOS (days): 3 days is the estimated time the patient will need to remain in the hospital, assuming treatment plan goals are met and no additional complications. Post-Hospital Plan: Not yet determined Caridad López MD Apr 06, 2017 22:56
[2017-04-06 23:08] VITALS: BP 159/91; PULSE 77; RESP 16; O2SAT 97
[2017-04-07] VITALS (28 sets, daily range): BP systolic 133–155; BP diastolic 62–94; PULSE 61–97; RESP 18–22; TEMP 98–98.9; O2SAT 96–100
[2017-04-07] MEDS ORDERED: LORazepam 1 MG TAB PO PRN (01:45)
[2017-04-07] MEDS ORDERED: IBUPROFEN 400 MG TAB PO PRN (01:45)
[2017-04-07 02:07] LABS: HEMATOCRIT 41.7 % (39.0-51.0); MEAN CELL VOLUME 96.8 FL (80.0-100.0); MEAN CORPUSCULAR HEMOGLOBIN 32.5 PG (27.0-34.0); MEAN CORPUSCULAR HGB CONC 33.6 % (32.0-36.0); PLATELET COUNT 238 TH/MM3 (150-450); RED BLOOD COUNT 4.31 MIL/MM3 (4.50-5.90); WHITE BLOOD COUNT 10.9 TH/MM3 (4.0-11.0)
[2017-04-07 02:08] LABS: HEMO FLAGS AUTO DIFF
[2017-04-07 02:23] LABS: BICARBONATE 28.9 MEQ/L (21.0-32.0)
[2017-04-07 02:38] LABS: BANDS 3 % (0-6); NEUTROPHIL # MANUAL DIFF 8.2 TH/MM3 (1.8-7.7); POLYS (SEG NEUTROPHILS) 72 % (16-70); WBC DIFF SAMPLE 100
[2017-04-07 02:39] LABS: PLATELET ESTIMATE SMEAR NORMAL (NORMAL); PLATELET MORPHOLOGY NORMAL (NORMAL); SCAN/DIFF FINAL DIFF MANUAL
[2017-04-07] MEDS: ENOXAPARIN SODIUM 60 MG/0.6 ML SYRINGE SQ SCH ×2 (04:00→15:13)
[2017-04-07] MEDS: SODIUM CHLOR 0.9% 1000 ML INJ 1,000 ML IV SCH ×2 (07:27→20:35)
[2017-04-07] MEDS: SODIUM CHLORIDE 0.9% FLUSH 10 ML FLUSH IV FLUSH SCH ×2 (09:00→21:00)
--- NOTE | 2017-04-07 10:17 | HHI.PR ---
Subjective Remarks Follow-up Non-ST elevation UT/toxic encephalopathy/COPD exacerbation 04/07/17-patient seen and examined, alert and oriented 3, complains of what patient describes as rib pain 7/10 in intensity however worse with cough, which is nonproductive. Wheezing on exam and states he smokes one pack per day. Has not seen a PCP over a year. UDS positive for cocaine Objective Vitals Vital Signs Date Time Temp Pulse Resp B/P (MAP) Pulse Ox O2 Delivery O2 Flow Rate FiO2 04/07/17 09:08 74 04/07/17 08:00 74 04/07/17 07:00 71 04/07/17 07:00 98.6 77 18 149/89 (109) 100 04/07/17 06:00 74 04/07/17 05:00 72 04/07/17 04:00 74 04/07/17 03:00 98.0 71 18 137/88 (104) 100 04/07/17 03:00 74 04/07/17 02:00 72 04/07/17 01:00 71 04/07/17 00:15 98.3 78 20 155/94 (114) 99 04/07/17 00:14 04/06/17 23:08 77 16 159/91 (113) 97 Nasal Cannula 1.00 04/06/17 22:07 97 Nasal Cannula 1.00 04/06/17 20:10 98.7 04/06/17 19:46 104 20 127/76 (93) 94 2.00 04/06/17 19:05 100 Non-Rebreather 15.00 04/06/17 19:05 20 99 Non-Rebreather 04/06/17 19:03 109 20 216/116 (149) 100 Non-Rebreather 15.00 I/O 04/06/17 04/06/17 04/06/17 04/07/17 04/07/17 04/07/17 06:59 14:59 22:59 06:59 14:59 22:59 Intake Total 500 ml 500 ml Output Total 275 ml Balance 500 ml 225 ml Intake Oral 0 ml IV Total 500 ml 500 ml Output Urine Total 275 ml Result Diagram: 04/07/17 0150 04/07/17 0150 Imaging Last Impressions Head CT 04/06/17 6915 Signed Impressions: Service Date/Time: Thursday, April 06, 2017 18:57 - CONCLUSION: 1. Suboptimal examination. 2. No acute hemorrhage or mass effect. 3. Moderate atrophic change. The lateral ventricles appear dilated out of proportion to the degree of atrophy which could indicate normal pressure hydrocephalus. Marlon Salguero MD Chest X-Ray 04/06/17 1853 Signed Impressions: Service Date/Time: Thursday, April 06, 2017 19:41 - CONCLUSION: No acute disease. Marlon Salguero MD Liver Ultrasound 04/06/17 0000 Signed Impressions: Service Date/Time: Thursday, April 06, 2017 22:17 - CONCLUSION: 1. Liver is prominent with small calcifications. 2. The gallbladder is grossly unremarkable. Visualization was suboptimal. Marlon Salguero MD Objective Remarks GENERAL: NAD SKIN: Warm and dry. HEAD: Normocephalic. EYES: No scleral icterus. No injection or drainage. NECK: Supple, trachea midline. No JVD or lymphadenopathy. CARDIOVASCULAR: Regular rate and rhythm without murmurs, gallops, or rubs. RESPIRATORY: Breath sounds decreased bilaterally. No accessory muscle use. Positive for expiratory wheezes GASTROINTESTINAL: Abdomen soft, non-tender, nondistended. MUSCULOSKELETAL: No cyanosis, or edema. BACK: Nontender without obvious deformity. No CVA tenderness. Procedures None A/P Problem List: (1) Non-ST elevation UT (NSTEMI) ICD Code: I21.4 - Non-ST elevation (NSTEMI) myocardial infarction (2) IFG (impaired fasting glucose) ICD Code: R73.01 - Impaired fasting glucose (3) Transaminitis ICD Code: R74.0 - Nonspecific elevation of levels of transaminase and lactic acid dehydrogenase [LDH] (4) COPD with exacerbation ICD Code: J44.1 - Chronic obstructive pulmonary disease with (acute) exacerbation (5) Toxic encephalopathy ICD Code: G92 - Toxic encephalopathy (6) Metabolic acidosis ICD Code: E87.2 - Acidosis Status: Acute (7) Cocaine abuse ICD Code: F14.10 - Cocaine abuse, uncomplicated (8) Tobacco abuse ICD Code: Z72.0 - Tobacco use Assessment and Plan 66-year-old man with Non-ST elevation UT Cocaine cardiomyopathy? Cardiology consultation pending Advised on tobacco as well as cocaine cessation Continue with ACS rule out per protocol with serial cardiac enzyme and EKGs Check 2-D echo as well as Lexiscan stress test Continue aspirin, Lovenox, Nitropaste, check lipid profile and treat accordingly Beta meka contraindicated, start calcium channel meka Toxic encephalopathy-resolved UDS positive for cocaine Head CT noted and review by me and read unremarkable COPD exacerbation Chest x-ray noted and review by me without any pulmonary infiltrate Start Solu-Medrol 20 mg IV every 12 however, scheduled DuoNeb as well as when necessary,Symbicort, Spiriva, azithromycin 2050 mg by mouth daily,Mucinex Maintain oxygen saturation above 92% Advised on tobacco cessation Transaminitis Liver ultrasound noted and review by me Hepatitis profile pending Metabolic acidosis Resolved with gentle IV fluid hydration Impaired fasting glucose Check hemoglobin A1c and treat accordingly Tobacco abuse Counseled to quit Start Nicotine patch Hypertension Labile BP Starts Norvasc 5 mg Rhabdomyolysis Resolved with IV fluid hydration DVT prophylaxis: Lovenox Change admission to inpatient Tre Quiroz MD Apr 07, 2017 10:17
[2017-04-07 10:48] LABS: BICARBONATE 23.9 MEQ/L (21.0-32.0); MAGNESIUM 1.9 MG/DL (1.5-2.5); POTASSIUM 3.7 MEQ/L (3.5-5.1)
[2017-04-07 10:58] LABS: ANION GAP 9 MEQ/L (5-15); BICARBONATE 26.2 MEQ/L (21.0-32.0); BLOOD UREA NITROGEN 6 MG/DL (7-18); CHLORIDE 100 MEQ/L (98-107); GLOMERULAR FILTRATION RATE 119 ML/MIN (>89); POTASSIUM 3.7 MEQ/L (3.5-5.1); SODIUM (NA) 135 MEQ/L (136-145)
[2017-04-07 11:00] LABS: LDL CHOLESTEROL 67 MG/DL (0-99)
[2017-04-07] MEDS ORDERED: TIOTROPIUM BROMIDE 18 MCG INH INH SCH (11:00)
[2017-04-07] MEDS ORDERED: RESP: ALBUTEROL 2.5 MG/IPRATROPIUM 0.5 MG NEB (PRN) NEB (11:00)
[2017-04-07] MEDS: methylPREDNISolone SOD SUCC 40 MG/1 ML VIAL IV PUSH SCH ×2 (11:24→22:06)
[2017-04-07 11:48] LABS: HEMOGLOBIN A1a 0.9 %; HEMOGLOBIN A1b 1.3 %; HEMOGLOBIN Ao 86.2 %; HEMOGLOBIN F 0.3 %; HEMOGLOBIN P3 3.5 %
[2017-04-07] MEDS: RESP: ALBUTEROL 2.5 MG/IPRATROPIUM 0.5 MG NEB (SCH) NEB ×2 (13:25→20:00)
--- NOTE | 2017-04-07 15:55 | MB ---
cc: ALISE MAK M.D. DATE OF CONSULTATION: 04/07/2017 REASON FOR CONSULTATION Unresponsive increased troponin. HISTORY OF PRESENT ILLNESS Mr. Huang is a 66-year-old gentleman with apparently no history of systemic illness, taking no medication, was found unresponsive. He was brought to the emergency room. Heart rate was in the 40s. He was antalgic. He had metabolic acidosis and acidosis and high osmolarity. IV fluids was initiated. The patient received Narcan. Head CT scan was negative. He was found with positive for cocaine. The patient's condition significantly improved since hospitalization. Troponin increased. I was consulted for further evaluation and management. The chart was reviewed, the patient was evaluated. ALLERGIES None reported. SOCIAL HISTORY The patient smokes and uses cocaine. FAMILY HISTORY Noncontributory to his current medical condition. MEDICATIONS At home he was on basically no medication. Medication in the hospital: 1. Norvasc was added. 2. Aspirin. 3. Zithromax. 4. Lovenox subcu. REVIEW OF SYSTEMS He refers feeling better. No chest pain or chest discomfort. No vomiting. No fever. PHYSICAL EXAMINATION GENERAL: Alert, fully oriented. VITAL SIGNS: His blood pressure is 132/77, pulse 61, respiratory rate 18. LUNGS: Ventilated. CARDIOVASCULAR: S1-S2, no gallop. No murmur. ABDOMEN: Soft. No mass. No bruit. EXTREMITIES: No edema. ELECTROCARDIOGRAM Shows sinus rhythm, some inferior Q-wave, no acute ST and T-wave changes. LABORATORY DATA Hemoglobin is 14.0, white blood cell 10.9, potassium 3.7, creatinine 0.67. Sodium 133, troponin 0.27. HDL 39, LDL 67, total cholesterol 123. ASSESSMENT AND RECOMMENDATIONS Mr. Huang was admitted under the name of Emanuel Anton. He fully recuperated since then, alert and oriented. He refers no chest pain, no chest discomfort, no shortness of breath. The gentleman referred he does not remember what happened. The gentleman apparently was dehydrated also. I advised him to stop smoking and using recreational drugs. Will continue on current medical management. When stable a nuclear stress study can be requested. I will closely monitor him during hospitalization. MD VINCENT Raygoza/ANDREW /2:32 PM /3:32 PM
--- NOTE | 2017-04-07 19:59 | EKG ---
Date Performed: 04/07/2017 Time Performed: 08:59:58 PTAGE: 66 years EKG: Sinus rhythm . Prolonged QT interval Inferior infarct - age undetermined Abnormal ECG PREVIOUS TRACING : 04/07/2017 01.57 DOCTOR: Ty Bauman Interpretating Date/Time 04/07/2017 19:56:47
--- NOTE | 2017-04-07 20:03 | EKG ---
Date Performed: 04/07/2017 Time Performed: 01:57:50 PTAGE: 89 years EKG: Sinus rhythm . Inferior infarct - age undetermined Abnormal ECG PREVIOUS TRACING : 04/06/2017 19.45 DOCTOR: Ty Bauman Interpretating Date/Time 04/07/2017 20:02:03
--- NOTE | 2017-04-07 20:10 | EKG ---
Date Performed: 04/06/2017 Time Performed: 19:45:10 PTAGE: 89 years EKG: SINUS TACHYCARDIA INFERIOR MYOCARDIAL INFARCTION ABNORMAL ECG INTERPRETATION BASED ON A DEF TORI AGE OF 42 YEARS NO PREVIOUS TRACING DOCTOR: Ty Bauman Interpretating Date/Time 04/07/2017 20:05:58
[2017-04-07] MEDS ORDERED: BUDESONIDE-FORMOTEROL 160/4.5 MCG INHALER INH SCH (21:00)
[2017-04-08] VITALS (7 sets, daily range): BP systolic 159; BP diastolic 90; PULSE 50–64; RESP 20; TEMP 98.4; O2SAT 96
[2017-04-08] MEDS: ENOXAPARIN SODIUM 60 MG/0.6 ML SYRINGE SQ SCH (03:34)
--- NOTE | 2017-04-08 07:48 | PD.AMA ---
Against Medical Advice Note Diagnosis: (1) Non-ST elevation SD (NSTEMI) Discharge Disposition: Against Medical Advice AMA Statement Patient Kemal Huang has decided to leave the hospital against medical advice. This patient has the capacity to refuse care and understands the risks of leaving, including permanent disability and/or , and has had an opportunity to ask questions about his condition. The patient has been informed that he may return for care at any time, and follow up has been arranged/ advised. Tre Quiroz MD Apr 08, 2017 07:48
[2017-04-08] MEDS ORDERED: NICOTINE 21 MG/24 HR PATCH T-DERMAL SCH (09:00)
[2017-04-08] MEDS ORDERED: amLODIPine BESYLATE 5 MG TAB PO SCH (09:00)
[2017-04-08] MEDS ORDERED: AZITHROMYCIN 250 MG TAB PO SCH (11:00)
[2017-04-08] MEDS ORDERED: REMOVE OLD PATCH T-DERMAL SCH (21:00)
[2017-04-20 07:19] LABS: CRITICAL VALUE YES
== END 2017-04-08 08:11 | disposition left against medical advice (07) | DRG 280 ==
LOC: NEPE 18:50 → EDBD 21:29 → NEDH 21:29 → HCIN 04-07 00:21 → OBSVTOIN 04-07 10:02
PROVIDERS: ADMIT Hospitalist; ATTEND Hospitalist
DX: I21.4 Non-ST elevation (NSTEMI) myocardial infarction (principal); G92 Toxic encephalopathy; J96.00 Acute respiratory failure, unspecified whether with hypoxia or hypercapnia; E87.4 Mixed disorder of acid-base balance; M62.82 Rhabdomyolysis; J44.1 Chronic obstructive pulmonary disease with (acute) exacerbation; E86.0 Dehydration; F17.210 Nicotine dependence, cigarettes, uncomplicated; F14.10 Cocaine abuse, uncomplicated; R73.01 Impaired fasting glucose; I10 Essential (primary) hypertension
CPT/HCPCS: 36600; 70450; 71010; 76705; 80048; 80053; 80061; 80074; 80307; 81001; 82550; 82552; 82805; 82948; 83036; 83605; 83735; 83880; 83930; 83935; 84100; 84443; 84484; 85007; 85025; 85027; 85610; 85730; 93005; 94640; 94664; 96374; 96375; 96376; J1644; J1650; J2060; J2310; J2920; J3010; J7030; J7040; P9612